=== PATIENT | female | born 1975 | race Caucasian/White ===

== ENCOUNTER 2019-12-12 14:26 | Emergency (ER) | payer OTHER, MEDICAID ==
[~2019-12-12] VITALS: Ht 165.1 cm; Wt 63.5 kg
[2019-12-12 14:26] VITALS: BP_SYST 120
[2019-12-12] MEDS ORDERED: KETOROLAC TROMETHAMINE 60 MG/2 ML VIAL IM ONE (15:45)
[2019-12-12 16:26] VITALS: BP_SYST 120
== END 2019-12-12 16:27 | disposition home or self-care (01) ==
LOC: SED 14:26
DX: R51.9 Headache, unspecified (principal); V49.9XXA Car occupant (driver) (passenger) injured in unspecified traffic accident, initial encounter; Y93.89 Activity, other specified; Y92.89 Other specified places as the place of occurrence of the external cause; Y99.8 Other external cause status
CPT/HCPCS: 96372; 99283; J1885